=== PATIENT | female | born 1970 | race Caucasian/White ===

== ENCOUNTER 2019-04-05 16:49 | Emergency (ER) | payer OTHER ==
[~2019-04-05] VITALS: Ht 154.9 cm; Wt 84.0 kg
[2019-04-05 17:03] VITALS: BP 158/98
[2019-04-05] MEDS ORDERED: CYCLOBENZAPRINE 10 MG TABLET PO ONE (18:00)
[2019-04-05] MEDS ORDERED: CYCLOBENZAPRINE 10 MG TABLET ONE (18:01)
--- NOTE | 2019-04-05 18:04 | NUR ---
Pt medicated as per emar for 12/06 low back pain. Onset low back pain radiating down B legs today w/ no trauma or previous injuries or surgeries to area. To radiology via wheelchair.
--- NOTE | 2019-04-05 18:41 | NUR ---
Pt states pain is beginning to decrease. Prefers to stay in wheelchair at BS for maximum comfort.
[2019-04-05] MEDS ORDERED: HYDROcodone/APAP 5/325 TABLET ONE (19:07)
[2019-04-05] MEDS ORDERED: HYDROcodone/APAP 5/325 TABLET PO ONE (19:30)
== END 2019-04-05 19:43 | disposition home or self-care (01) ==
LOC: ED 19:32
DX: S39.012A Strain of muscle, fascia and tendon of lower back, initial encounter (principal); M54.41 Lumbago with sciatica, right side; M43.06 Spondylolysis, lumbar region; X58.XXXA Exposure to other specified factors, initial encounter; Y93.89 Activity, other specified; Y92.89 Other specified places as the place of occurrence of the external cause; Y99.8 Other external cause status
CPT/HCPCS: 72110; 99283

== ENCOUNTER 2019-04-16 09:32 | Emergency (ER) | payer OTHER ==
[~2019-04-16] VITALS: Ht 154.9 cm; Wt 87.9 kg
--- NOTE | 2019-04-16 10:02 | NUR ---
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
[2019-04-16 10:44] VITALS: BP 142/84
--- NOTE | 2019-04-16 10:45 | NUR ---
PT HAS CO BACK PAIN, UNABLE TO WALK, LOST BLADDER CONTROL ONCE BECAUSE IT WAS TO PAINFUL TO GET TO BATHROOM. PT HAS BEEN TAKING MUSCLE RELAXANTS, WAS IN ED LAST WEEK. SYMPTOMS HAVE NOT GOTTEN BETTER. PT TEARFUL. SENSATION INTACT. NO INJURY.
[2019-04-16] MEDS ORDERED: KETOROLAC 30 MG/1 ML ONE (11:18)
[2019-04-16] MEDS ORDERED: MORPHINE SULFATE 4 MG/ML, 1ML ONE (11:18)
[2019-04-16] MEDS ORDERED: DEXAMETHASONE 4 MG/ML, 1ML ONE (11:18)
[2019-04-16] MEDS ORDERED: ONDANSETRON 2MG/ML, 2ML ONE (11:18)
[2019-04-16] MEDS ORDERED: ONDANSETRON 2MG/ML, 2ML IVPush ONE (11:30)
[2019-04-16] MEDS ORDERED: SODIUM CHLORIDE FLUSH 10ML SYR IVF ONE (11:30)
[2019-04-16] MEDS ORDERED: DEXAMETHASONE 4 MG/ML, 1ML IVPush ONE (11:30)
[2019-04-16] MEDS: KETOROLAC 30 MG/1 ML IVPush ONE (11:30)
[2019-04-16] MEDS ORDERED: MORPHINE SULFATE 4 MG/ML, 1ML IVPush PRN (11:30)
[2019-04-16 11:51] LABS: MICROSCOPIC NOT IND
--- NOTE | 2019-04-16 11:59 | NUR ---
MEDICATED PER ORDERS. PT IS RELIEVED OF PAIN, ABLE TO AMBULATED TO BATHROOM
[2019-04-16 12:04] LABS: CULTURE INDICATED? NO
--- NOTE | 2019-04-16 12:21 | NUR ---
Patient/Caregiver given discharge instructions and they have confirmed that they understand the instructions. Patient ambulatory with steady gait.
== END 2019-04-16 12:28 | disposition home or self-care (01) ==
LOC: ED 12:12
DX: M54.41 Lumbago with sciatica, right side (principal); M62.838 Other muscle spasm; Z90.49 Acquired absence of other specified parts of digestive tract
CPT/HCPCS: 81003; 96374; 96375; 99284; J1100; J1885; J2270; J2405

== ENCOUNTER 2019-07-26 18:57 | Emergency (ER) | payer OTHER ==
[~2019-07-26] VITALS: Ht 154.9 cm; Wt 81.1 kg
[2019-07-26] MEDS ORDERED: ACETAMINOPHEN 500 MG TABLET ONE (20:11)
[2019-07-26] MEDS ORDERED: ACETAMINOPHEN 500 MG TABLET PO ONE (20:30)
--- NOTE | 2019-07-26 20:30 | NUR ---
PT HERE FOR SUDDEN LEFT SIDED RUSHING FEELING THAT FEELS LIKE HER HEART STOPS AND RESTARTS, PT REPORTS HE LEFT ARM IS NUMB AND GOES IN AND OUT. PT DENIES TRAUMA BUT HAS HAD MORE STRESS IN LIFE. PT DENIES ANY COMPLEX MEDICAL HX. PT CONNECTED TO MONITORS AND CALL LIGHT IN REACH. AWAITING FURTHER ORDERS.
--- NOTE | 2019-07-26 20:35 | NUR ---
PT MEDICATED PER EMAR.
[2019-07-26 20:37] LABS: BASOPHILS # (AUTO) 0.15 x10^3/uL (0-0.1); BASOPHILS % (AUTO) 2 % (0-1); EOSINOPHILS # (AUTO) 0.18 x10^3/uL (0-0.4); EOSINOPHILS % (AUTO) 2 % (1-7); LYMPHOCYTES # (AUTO) 2.59 x10^3/uL (1-3.4); LYMPHOCYTES % (AUTO) 30 % (22-44); MD NO; MEAN CORPUSCULAR HEMOGLOBIN 24.7 pg (27.0-34.8); MEAN CORPUSCULAR HGB CONC 32.1 g/dL (32.4-35.8); MEAN CORPUSCULAR VOLUME 77.1 fL (80-100); MEAN PLATELET VOLUME 8.2 fL (7.4-10.4); MONOCYTES # (AUTO) 0.64 x10^3/uL (0.2-0.8); MONOCYTES % (AUTO) 7 % (2-9); NEUTROPHILS # (AUTO) 5.17 x10^3/uL (1.8-6.8); NEUTROPHILS % (AUTO) 59 % (42-75); PLATELET COUNT 279 x10^3/uL (130-400); RED BLOOD COUNT 5.03 x10^6/uL (3.82-5.3); RED CELL DISTRIBUTION WIDTH 16.1 % (9.6-15.2)
[2019-07-26 20:49] LABS: ALBUMIN 3.3 g/dL (3.4-5.0); ANION GAP 5 mmol/L (5-15); CALCIUM 8.5 mg/dL (8.5-10.1); CHLORIDE 111 mmol/L (98-107)
[2019-07-26 20:55] LABS: CREATININE 1.03 mg/dL (0.55-1.02); TROPONIN I < 0.015 ng/mL (0.000-0.045)
[2019-07-26 21:47] VITALS: BP 126/84
== END 2019-07-26 22:07 | disposition home or self-care (01) ==
LOC: ED 20:30
DX: R00.2 Palpitations (principal); R20.2 Paresthesia of skin; R07.89 Other chest pain; R51 Headache; R94.31 Abnormal electrocardiogram [ECG] [EKG]; Z90.49 Acquired absence of other specified parts of digestive tract
CPT/HCPCS: 36415; 71045; 80048; 82040; 83880; 84484; 85025; 93005; 99285

== ENCOUNTER 2020-01-16 19:48 | Emergency (ER) | payer OTHER ==
[~2020-01-16] VITALS: Ht 154.9 cm; Wt 85.1 kg
--- NOTE | 2020-01-16 21:19 | NUR ---
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
--- NOTE | 2020-01-16 21:39 | NUR ---
PT FULLY DRESSED. C/O NUMBNESS TO HANDS BILAT, RT HAND IS WORSE. SX "FOR AWHILE, BUT GOT REALLY BAD ON MONDAY". PT RT HANDED. DENIES RECENT FALL, TRAUMA. 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
--- NOTE | 2020-01-16 22:05 | NUR ---
PT REPORT TO KENROY DIAZ. PT CARE TRANSFERRED.
[2020-01-16 23:06] VITALS: BP 148/86
== END 2020-01-16 20:42 ==
LOC: ED 20:35
DX: G89.29 Other chronic pain (principal); M79.641 Pain in right hand; M79.642 Pain in left hand; M25.532 Pain in left wrist; M25.531 Pain in right wrist; R20.2 Paresthesia of skin
CPT/HCPCS: 72050; 99283

== ENCOUNTER 2020-02-21 21:25 | Emergency (ER) | payer OTHER ==
[~2020-02-21] VITALS: Ht 154.9 cm; Wt 82.3 kg
--- NOTE | 2020-02-21 21:43 | NUR ---
Pt comes in with complaints of right upper arm pain. Patient stated that she was closing the back maldonado of her car and it started to go down hitting her arm right about the elbow. Patient has full ROM. Noted to have a bruised area. +CMS
[2020-02-21 22:56] VITALS: BP 136/86
== END 2020-02-21 23:15 | disposition home or self-care (01) ==
LOC: ED 23:02
DX: S50.11XA Contusion of right forearm, initial encounter (principal); S40.021A Contusion of right upper arm, initial encounter; X58.XXXA Exposure to other specified factors, initial encounter; Y93.89 Activity, other specified; Y92.098 Other place in other non-institutional residence as the place of occurrence of the external cause; Y99.8 Other external cause status
CPT/HCPCS: 99284

== ENCOUNTER 2020-09-12 14:00 | Inpatient (IN) | payer MEDICAID ==
[~2020-09-12] VITALS: Ht 154.9 cm; Wt 90.9 kg
[2020-09-12] MEDS ORDERED: LORazepam 2 MG/ML, 1ML ONE (14:03)
[2020-09-12 14:11] LABS: MEAN CORPUSCULAR HEMOGLOBIN 26.8 pg (27.5-34.5); MEAN CORPUSCULAR HGB CONC 32.4 g/dL (33.2-36.2); MEAN PLATELET VOLUME 8.2 fL (7.4-10.4); PLATELET COUNT 389 x10^3/uL (130-400); RED BLOOD COUNT 6.07 x10^6/uL (4.38-5.82); RED CELL DISTRIBUTION WIDTH 17.2 % (9.4-14.8)
--- NOTE | 2020-09-12 14:18 | NUR ---
PT STRAIGHT BACK AFTER FAMILY DROPPED PT OFF AFTER WHAT THEY THINK WAS SEZIURE ACTIVITY. PT W/ C/O R. SIDE NUMBNESS. CODE NEURO CALLED AT [id number]. PT TO HEAD CT TP [id number]. DR. HOWARD EVALUATING.
[2020-09-12 14:29] LABS: INTERNATIONAL NORMALIZED RATIO 0.96 (0.93-1.1); PROTHROMBIN TIME 10.3 Seconds (9.6-11.5)
[2020-09-12] MEDS ORDERED: PLEASE ENTER HEIGHT AND WEIGHT MC SCH (14:30)
[2020-09-12] MEDS ORDERED: SODIUM CHLORIDE 0.9% 1,000ML IVBOLUS ONE (14:30)
[2020-09-12] MEDS ORDERED: PLEASE ENTER ALLERGIES MC SCH (14:30)
[2020-09-12] MEDS ORDERED: LORazepam 2 MG/ML, 1ML IVPush ONE (14:30)
--- NOTE | 2020-09-12 14:37 | NUR ---
AT BEDSIDE, JACKIE, STATES PT STARTED COMPLAINING OF R. SIDE WEAKNESS AND NUMBNESS AND WAS ABLE TO MOVE R. LEG. PT THEN BECAME STIFF AND WITH EYES ROLLED BACK AND STARTED CONVULSING. PT CURRENTLY RESTING IN BED. VSS. WITH SOME CONFUSION. PT ABLE TO ANSWER MOST QUESTIONS APPROPRITELY WITH THE ECEPTION OF HER NOT KNOW THE CURRENT LOCATION OR SITUATION DESPITE BEING REORIENTED. PT FOLLOWING COMMAND APPROPRIATELY. EDWARDS EQUALLY HOWEVER STATES SHE STILL HAS NUMBESS IN RUE.
[2020-09-12 14:53] LABS: <PLATELET ESTIMATE> ADEQUATE; <PLT MORPHOLOGY> NORMAL PLT MORPH; <RBC MORPHOLOGY> NORMAL; EOS#(MANUAL) 0.52 x10^3/uL (0.0-0.4); EOS% (MANUAL) 3 % (1-7); LYMPH#(MANUAL) 4.99 x10^3/uL (1-3.4); LYMPHS% (MANUAL) 29 % (22-44); MONOS#(MANUAL) 1.03 x10^3/uL (0.3-2.7); MONOS% (MANUAL) 6 % (2-9); SEG#(MANUAL) 10.66 x10^3/uL (1.8-6.8); SEGS% (MANUAL) 62 % (42-75)
[2020-09-12] MEDS ORDERED: LEVETIRACETAM 1,000 MG in SODIUM CHLORIDE 0.9% 100 ML IV ONE (16:00)
--- NOTE | 2020-09-12 16:06 | NUR ---
PT RESTING IN BED. EEG TO BE PREFORMED. PER DR. HOWARD START KEPPRA AFTER EEG IS COMPLETE. RICHARD. MICHELLE.
--- NOTE | 2020-09-12 17:29 | NUR ---
EEG DONE. PT RESTING IN BED. VSS. NADN. STATES SHE FEELS BETTER AND SENSATION IS BACK ON RUE. MEDICATED PER EMAR.
[2020-09-12] MEDS ORDERED: KETOROLAC 30 MG/1 ML IM PRN (17:30)
[2020-09-12] MEDS ORDERED: BUTALB/APAP/CAFFEINE 50MG/325MG/40MG PO PRN ×2 (17:30)
[2020-09-12] MEDS ORDERED: hydrALAzine 20 MG/ML, 1ML IVPush PRN (17:30)
[2020-09-12] MEDS ORDERED: BACLOFEN 10 MG TABLET PO PRN (17:30)
[2020-09-12] MEDS ORDERED: GUAIFENESIN/DM 200-20MG, 10ML UDC PO PRN (17:30)
[2020-09-12] MEDS ORDERED: MELATONIN 5 MG TABLET PO PRN (17:30)
[2020-09-12] MEDS ORDERED: ONDANSETRON 2MG/ML, 2ML IVPush PRN (17:30)
[2020-09-12] MEDS ORDERED: ACETAMINOPHEN 325 MG TABLET PO PRN (17:30)
[2020-09-12] MEDS ORDERED: ONDANSETRON ODT 4 MG PO PRN (17:30)
--- NOTE | 2020-09-12 18:14 | NUR ---
PT RESTING IN BED. VSTanesha. MICHELLE.
--- NOTE | 2020-09-12 18:51 | NUR ---
BEDSIDE REPORT TO JESSENIA JASMINE.
--- NOTE | 2020-09-12 18:59 | NUR ---
REPORT FROM BARBY ASSUMED CARE OF PT
--- NOTE | 2020-09-12 19:22 | NUR ---
REPORT TO SUNG MCCRACKEN TO FLOOR WITH TECH
[2020-09-12] MEDS ORDERED: ASPI81TA45 PO (20:20)
[2020-09-12] MEDS ORDERED: CYCL10TA2 PO (20:20)
[2020-09-12] MEDS ORDERED: METO25TA35 PO (20:20)
[2020-09-12] MEDS ORDERED: FERR325T18 PO (20:20)
[2020-09-12] MEDS ORDERED: EZET10TA70 PO (20:20)
[2020-09-12] MEDS ORDERED: ATOR-2 PO (20:20)
[2020-09-12] MEDS ORDERED: PREG75CA PO (20:20)
[2020-09-12] MEDS ORDERED: VENL37.511 PO (20:20)
[2020-09-12] MEDS ORDERED: VENL75CA6 PO (20:22)
[2020-09-12 20:30] VITALS: BP 119/77
[2020-09-12] MEDS ORDERED: CYCLOBENZAPRINE 10 MG TABLET PO PRN (22:30)
[2020-09-13 00:21] VITALS: BP 110/73
[2020-09-13 04:28] LABS: BASOPHILS % (AUTO) 2 % (0-1); EOSINOPHILS % (AUTO) 4 % (1-7); LYMPHOCYTES % (AUTO) 31 % (22-44); MEAN CORPUSCULAR HEMOGLOBIN 26.9 pg (27.0-34.8); MEAN CORPUSCULAR HGB CONC 33.2 g/dL (32.4-35.8); MEAN PLATELET VOLUME 7.9 fL (7.4-10.4); MONOCYTES % (AUTO) 8 % (2-9); NEUTROPHILS % (AUTO) 55 % (42-75); PLATELET COUNT 222 x10^3/uL (130-400); RED BLOOD COUNT 4.79 x10^6/uL (3.82-5.3); RED CELL DISTRIBUTION WIDTH 16.5 % (9.6-15.2)
[2020-09-13 04:37] LABS: CHLORIDE 112 mmol/L (98-107)
[2020-09-13 04:43] LABS: ANION GAP 5 mmol/L (5-15); CALCIUM 8.2 mg/dL (8.5-10.1); CREATININE 0.54 mg/dL (0.55-1.02)
[2020-09-13 07:42] VITALS: BP 132/82
[2020-09-13] MEDS ORDERED: SENNA/DOCUSATE TABLET PO SCH (09:00)
[2020-09-13] MEDS ORDERED: LEVETIRACETAM 500 MG TABLET PO SCH (09:00)
[2020-09-13] MEDS ORDERED: EZETIMIBE 10 MG TABLET PO SCH (10:30)
[2020-09-13] MEDS ORDERED: PREGABALIN 75 MG CAPSULE PO SCH (10:30)
[2020-09-13] MEDS ORDERED: ASPIRIN 81 MG TABLET EC PO SCH (10:30)
[2020-09-13] MEDS ORDERED: VENLAFAXINE 75 MG CAP ER PO SCH (10:30)
[2020-09-13] MEDS ORDERED: METOPROLOL TARTRATE 25 MG TAB PO SCH (10:30)
[2020-09-13] MEDS ORDERED: CYCLOBENZAPRINE 10 MG TABLET PO PRN (10:30)
[2020-09-13] MEDS ORDERED: LEVE500T53 PO (11:30)
[2020-09-13] MEDS ORDERED: ATORVASTATIN 80 MG TABLET PO SCH (21:00)
[2020-09-15] MEDS ORDERED: FERROUS SULFATE 325 MG TABLET PO SCH (09:00)
== END 2020-09-13 12:58 | disposition home or self-care (01) | DRG 101 ==
LOC: MERGE 14:00 → EDSEX 14:00 → EDBD 14:00 → ED 14:23 → EDIP 16:57 → 5SO 20:02
PROVIDERS: ADMIT Family Medicine; ATTEND Family Medicine
DX: G40.209 Localization-related (focal) (partial) symptomatic epilepsy and epileptic syndromes with complex partial seizures, not intractable, without status epilepticus (principal); E66.9 Obesity, unspecified; F41.9 Anxiety disorder, unspecified; D72.829 Elevated white blood cell count, unspecified; G47.30 Sleep apnea, unspecified; G83.84 Todd's paralysis (postepileptic); Z86.73 Personal history of transient ischemic attack (TIA), and cerebral infarction without residual deficits; Z90.49 Acquired absence of other specified parts of digestive tract; Z88.6 Allergy status to analgesic agent; Z68.37 Body mass index [BMI] 37.0-37.9, adult
CPT/HCPCS: 36415; 70450; 70496; 70498; 80047; 80048; 83735; 85025; 85610; 85730; 95819; 96374; G0378; J1953; J2060; J7030